=== PATIENT | male | born 1965 | race Caucasian/White ===

== ENCOUNTER 2019-12-25 08:46 | Inpatient (IN) | payer MEDICAID, OTHER ==
[~2019-12-25] VITALS: Ht 162.6 cm; Wt 67.1 kg
--- NOTE | 2019-12-25 09:02 | NUR ---
[email or web address], medical screening exam in progress
[2019-12-25] MEDS ORDERED: FOLI1TAB16 PO (09:26)
[2019-12-25] MEDS ORDERED: PANT40TA49 PO (09:26)
[2019-12-25] MEDS ORDERED: NIFE-34 PO (09:26)
[2019-12-25] MEDS ORDERED: CALC667T6 PO (09:26)
[2019-12-25] MEDS ORDERED: VIT1TABL46 PO (09:26)
[2019-12-25] MEDS ORDERED: METO50TA16 PO (09:26)
[2019-12-25] MEDS ORDERED: METO25TA6 PO (09:26)
[2019-12-25] MEDS ORDERED: ASPI81TA31 PO (09:26)
[2019-12-25] MEDS ORDERED: ATOR20TA PO (09:26)
[2019-12-25] MEDS ORDERED: DIPH25CA83 PO (09:26)
[2019-12-25] MEDS ORDERED: APIX5TAB PO (09:26)
[2019-12-25] MEDS ORDERED: CYAN-51 PO (09:26)
[2019-12-25 09:57] LABS: BASOPHILS # (AUTO) 0.1 K/uL (0.0-8.0); BASOPHILS % (AUTO) 1.1 % (0.0-2.0); EOSINOPHILS # (AUTO) 0.1 K/uL (0.0-0.7); EOSINOPHILS % (AUTO) 1.9 % (0.0-7.0); HEMATOCRIT 30.6 % (36.7-47.1); HEMOGLOBIN 10.3 g/dL (12.5-16.3); LYMPHOCYTES # (AUTO) 1.2 K/uL (20.0-40.0); LYMPHOCYTES % (AUTO) 20.9 % (20.5-51.5); MEAN CORPUSCULAR HEMOGLOBIN 30.5 uug (23.8-33.4); MEAN CORPUSCULAR HGB CONC 34 g/dL (32.5-36.3); MEAN CORPUSCULAR VOLUME 90.2 fL (73.0-96.2); MONOCYTES # (AUTO) 0.4 K/uL (2.0-10.0); MONOCYTES % (AUTO) 7.6 % (0.0-11.0); NEUTROPHILS % (AUTO) 68.5 % (38.5-71.5); PLATELET COUNT (AUTO) 281 K/uL (152-348); RED BLOOD CELL COUNT(AUTO) 3.39 MIL/uL (4.06-5.63); WHITE BLOOD COUNT (AUTO) 5.9 K/uL (3.6-10.2)
[2019-12-25 10:04] LABS: POTASSIUM 4.8 mmol/L (3.5-5.1)
[2019-12-25 10:13] LABS: MAGNESIUM 3.5 mg/dL (1.8-2.4)
[2019-12-25 10:14] LABS: CREATININE 16.6 mg/dL (0.6-1.3)
[2019-12-25 10:17] LABS: PHOSPHOROUS 17.6 mg/dL (2.5-4.9)
[2019-12-25 10:20] LABS: BILIRUBIN,DIRECT 0.1 mg/dL (0.0-0.2); BILIRUBIN,TOTAL 0.5 mg/dL (0.2-1.0); TOTAL PROTEIN, SERUM 7.2 g/dL (6.4-8.2)
[2019-12-25 10:24] LABS: EOSINOPHILS % (MANUAL) 1 % (0-8); LYMPHOCYTES % (MANUAL) 20 % (20-40); MONOCYTES % (MANUAL) 7 % (2-10); NEUTROPHILS % (MANUAL) 72 % (42-75)
--- NOTE | 2019-12-25 10:24 | NUR ---
called [facility] for panel placement
--- NOTE | 2019-12-25 10:53 | NUR ---
LANDSCAPE CONTRACTOR [email or web address]
[2019-12-25] MEDS ORDERED: ACETAMINOPHEN 325 MG TABLET PO PRN (11:15)
[2019-12-25] MEDS ORDERED: ONDANSETRON 4 MG/2 ML VIAL IV PRN (11:15)
[2019-12-25] MEDS ORDERED: Z GUARD REMEDY PASTE 57 GM TUBE TOP PRN (11:15)
[2019-12-25] MEDS ORDERED: Medication Not On Formulary EA (Diphenhydramine Hcl (Benadryl) 25 MG) PO PRN (11:15)
[2019-12-25] MEDS ORDERED: diphenhydrAMINE 25 MG CAP PO PRN (11:45)
--- NOTE | 2019-12-25 12:08 | NUR ---
skin check done. no skin issues noted. pt have central line for dialysis intact. bruit felt on fistula. belongings check done. will apply tele monitor to patient.
[2019-12-25] MEDS: CALCIUM ACETATE 667 MG CAPSULE PO SCH ×2 (12:54→17:37)
[2019-12-25] MEDS: SEVELAMER CARBONATE 800 MG TABLET PO SCH (17:34)
[2019-12-25] MEDS: APIXABAN 5 MG TABLET PO SCH (17:38)
--- NOTE | 2019-12-25 19:30 | NUR ---
RECEIVED PT IN NO ACUTE DISTRESS. IV INTACT. SAFETY AND COMFORT PROVIDED. WILL CONTINUE TO MONITOR.
[2019-12-25 20:00] VITALS: BP 195/84
[2019-12-25] MEDS: ATORVASTATIN 20 MG TABLET PO SCH (20:23)
[2019-12-25] MEDS: METOPROLOL TARTRATE 50 MG TABLET PO SCH (21:02)
--- NOTE | 2019-12-25 21:12 | NUR ---
HYDRALAZINE ORDERED FOR PT FOR BP 195/84. PT IN NO ACUTE DISTRESS. WILL CONTINUE TO MONITOR.
[2019-12-25] MEDS: hydrALAZINE HCL 20 MG/1 ML VIAL IV PRN (22:04)
[2019-12-26 00:10] VITALS: BP 158/61
[2019-12-26 04:00] VITALS: BP 177/66
[2019-12-26] MEDS: hydrALAZINE HCL 20 MG/1 ML VIAL IV PRN (06:03)
--- NOTE | 2019-12-26 06:21 | NUR ---
PT IN NO ACUTE DISTRESS. IV INTACT. PRESCRIBED MEDICATION GIVEN AND PT TOLERATED IT WELL. PT GIVEN HYDRALIZINE FOR 177/46 BLOOD PRESSURE. PT TOLERATED IT WELL. SAFETY AND COMFORT PROVIDED.ALL NEEDS ARE MET.WILL ENDORSE TO INCOMING NURSE FOR CONTINUITY OF CARE.
[2019-12-26 06:27] VITALS: BP 159/73
[2019-12-26] MEDS ORDERED: PANTOPRAZOLE SODIUM 40 MG TABLET.DR PO SCH ×2 (07:00→09:00)
[2019-12-26 07:53] LABS: THYROID STIMULATING HORMONE 1.822 mIU/mL (0.358-3.740)
[2019-12-26 08:16] LABS: EOSINOPHILS # (AUTO) 0.2 K/uL (0.0-0.7); EOSINOPHILS % (AUTO) 4.1 % (0.0-7.0); HEMOGLOBIN 11.4 g/dL (12.5-16.3); LYMPHOCYTES # (AUTO) 1.2 K/uL (20.0-40.0); LYMPHOCYTES % (AUTO) 23.6 % (20.5-51.5); MEAN CORPUSCULAR HEMOGLOBIN 30.4 uug (23.8-33.4); MEAN CORPUSCULAR HGB CONC 33 g/dL (32.5-36.3); MEAN CORPUSCULAR VOLUME 90.9 fL (73.0-96.2); MONOCYTES # (AUTO) 0.4 K/uL (2.0-10.0); MONOCYTES % (AUTO) 8.2 % (0.0-11.0); NEUTROPHILS # (AUTO) 3.3 K/uL (1.8-8.9); NEUTROPHILS % (AUTO) 63.1 % (38.5-71.5); PLATELET COUNT (AUTO) 270 K/uL (152-348); RED BLOOD CELL COUNT(AUTO) 3.75 MIL/uL (4.06-5.63); WHITE BLOOD COUNT (AUTO) 5.2 K/uL (3.6-10.2)
[2019-12-26 08:19] LABS: HEMATOCRIT 34.1 % (36.7-47.1)
[2019-12-26] MEDS: CYANOCOBALAMIN 1,000 MCG TABLET PO SCH (08:39)
[2019-12-26] MEDS: FOLIC ACID 1 MG TABLET PO SCH (08:39)
[2019-12-26] MEDS: ASPIRIN 81 MG TAB.CHEW PO SCH (08:39)
[2019-12-26] MEDS: FOLIC ACID/VITAMIN B COMP W-C TABLET PO SCH (08:52)
[2019-12-26 08:59] LABS: POTASSIUM 5.1 mmol/L (3.5-5.1)
[2019-12-26] MEDS ORDERED: NIFEdipine XL 60 MG TABSR PO SCH (09:00)
[2019-12-26] MEDS ORDERED: Medication Not On Formulary EA (Vit B Cmplx 3/Fa/Vit C/Biotin (Rena-Vite Rx Tablet) 1 EA PO SCH (09:00)
[2019-12-26] MEDS: SEVELAMER CARBONATE 800 MG TABLET PO SCH ×3 (09:25→17:31)
[2019-12-26] MEDS: APIXABAN 5 MG TABLET PO SCH ×2 (09:26→17:31)
[2019-12-26] MEDS ORDERED: DEXTROSE 50% 50 ML DISP.SYRIN IV PRN (09:30)
[2019-12-26] MEDS: CALCIUM ACETATE 667 MG CAPSULE PO SCH ×3 (09:38→17:31)
[2019-12-26] MEDS: METOPROLOL TARTRATE 50 MG TABLET PO SCH ×2 (09:38→21:08)
[2019-12-26] MEDS: NIFEdipine XL 90 MG TABSR PO SCH (10:22)
[2019-12-26 10:31] LABS: CREATININE 12.1 mg/dL (0.6-1.3)
[2019-12-26 10:32] LABS: PHOSPHOROUS 10.1 mg/dL (2.5-4.9)
[2019-12-26 11:30] VITALS: BP 145/55
[2019-12-26] MEDS: INSULIN REGULAR, HUMAN 300 UNIT/3 ML VIAL SQ PRN ×2 (12:06→21:15)
[2019-12-26] MEDS: BLOOD SUGAR DIAGNOSTIC 1 EACH STRIP VI SCH ×3 (12:11→21:12)
[2019-12-26 15:30] VITALS: BP 110/51
--- NOTE | 2019-12-26 18:30 | NUR ---
Patient remains alert, oriented x 4, not in any form of distress,on room air. No significant change noted during the shift. Due medications administered and tolerated well. No complain of any pain or discomfort. Assisted with his needs promptly. Call light and frequently used items placed within patient's reach.
--- NOTE | 2019-12-26 19:00 | NUR ---
PATIENT ALERT ORIENTED, NO SOB NO CHEST PAIN. PATIENT ON TELE MONITOR SINUS RHYTHM, SINUS RODO 45. PATIENT R CHEST DIALYSIS CATH DRESSING INTACT, NO BLEEDING NOTED. PATIENT WANTS TO DRINK ALL KINDS OF FLUIDS, NON COMPLIANT WITH FLUIDS MODIFICATIONS, CONT TO ENCOURAGE TO FOLLOW MD ORDERED. PATIENT HAS NO S/S OF HYPO/HYPERGLYCEMIA NOTED AT THIS TIME.
[2019-12-26 20:00] VITALS: BP 112/49
[2019-12-26] MEDS: ATORVASTATIN 20 MG TABLET PO SCH (21:09)
[2019-12-27] VITALS: BP 114/50
--- NOTE | 2019-12-27 01:30 | NUR ---
PATIENT WAS DIAPHORETIC, BUT ALERT VERBALLY RESPONSIVE. BP 114/50, HR 53,100% NO COMPLAIN OF DISCOMFORT, CONT TO MONITOR.
--- NOTE | 2019-12-27 03:15 | NUR ---
PATIENT HR WAS 44, PATIENT AWAKE ALERT, STATED HE FEELS JOSE MARIA, NO COMPLAIN OF DISCOMFORT. SKIN WARM AND DRY, CONT TO MONITOR.
[2019-12-27 04:40] VITALS: BP 149/62
--- NOTE | 2019-12-27 04:44 | NUR ---
PATIENT HAS LOW TEMP 92 RECTAL, DARWIN HUGGER BLANKET APPLIED. PATIENT ALERT ORIENTED, NO S/S OF DISTRESS, CONT TO MONITOR.
[2019-12-27] MEDS: BLOOD SUGAR DIAGNOSTIC 1 EACH STRIP VI SCH ×4 (05:13→21:30)
--- NOTE | 2019-12-27 05:48 | NUR ---
PATIENT ALERT ORIENTED, NO SOB NO CHEST PAIN, TELE MONITOR SINUS RHYTHM, SINUS RODO AT 50. PATIENT ASYMPTOMATIC, CONT APPLICATIONS OF DARWIN HUGGER, NO COMPLAIN OF PAIN, CONT TO MONITOR.
--- NOTE | 2019-12-27 06:07 | NUR ---
PATIENT CURRENT TEMP 94.7 ORALLY, PATIENT ALERT ORIENTED, DARWIN LIN CONTINUE. DIALYSIS STAFF WILL DO DIALYSIS NOW, WILL CONTINUE TO MONITOR.
[2019-12-27 07:28] LABS: MAGNESIUM 3.1 mg/dL (1.8-2.4); POTASSIUM 4.8 mmol/L (3.5-5.1)
[2019-12-27 07:29] LABS: BASOPHILS % (AUTO) 0.5 % (0.0-2.0); EOSINOPHILS # (AUTO) 0.1 K/uL (0.0-0.7); HEMATOCRIT 34.1 % (36.7-47.1); HEMOGLOBIN 11.3 g/dL (12.5-16.3); LYMPHOCYTES # (AUTO) 0.9 K/uL (20.0-40.0); LYMPHOCYTES % (AUTO) 18.1 % (20.5-51.5); MEAN CORPUSCULAR HEMOGLOBIN 30.3 uug (23.8-33.4); MEAN CORPUSCULAR HGB CONC 33 g/dL (32.5-36.3); MEAN CORPUSCULAR VOLUME 90.8 fL (73.0-96.2); MONOCYTES # (AUTO) 0.4 K/uL (2.0-10.0); MONOCYTES % (AUTO) 8.3 % (0.0-11.0); NEUTROPHILS # (AUTO) 3.4 K/uL (1.8-8.9); NEUTROPHILS % (AUTO) 71.1 % (38.5-71.5); PLATELET COUNT (AUTO) 256 K/uL (152-348); RED BLOOD CELL COUNT(AUTO) 3.75 MIL/uL (4.06-5.63); WHITE BLOOD COUNT (AUTO) 4.7 K/uL (3.6-10.2)
--- NOTE | 2019-12-27 07:30 | NUR ---
received patient in bed. AOX4. dialysis nurse at bed. patient is getting dialysis. safety and fall prevention in place. call light in reach. will continue to monitor.
[2019-12-27 07:31] LABS: CREATININE 13.2 mg/dL (0.6-1.3)
--- NOTE | 2019-12-27 07:32 | NUR ---
PATIENT ALERT ORIENTED, PATIENT STILL ON DIALYSIS, ENDORSED TO NEXT NURSE PATIENT CURRENT TEMP. AND TO MONITOR.
[2019-12-27] MEDS: NIFEdipine XL 90 MG TABSR PO SCH (09:00)
[2019-12-27] MEDS ORDERED: PANTOPRAZOLE SODIUM 40 MG TABLET.DR PO SCH (09:00)
[2019-12-27] MEDS: ASPIRIN 81 MG TAB.CHEW PO SCH (09:00)
[2019-12-27 10:06] LABS: HEPATITIS B SURFACE AB Reactive (.); HEPATITIS B SURFACE AG Negative (Negative)
[2019-12-27] MEDS: FOLIC ACID 1 MG TABLET PO SCH (10:34)
[2019-12-27] MEDS: CYANOCOBALAMIN 1,000 MCG TABLET PO SCH (10:36)
[2019-12-27] MEDS: CALCIUM ACETATE 667 MG CAPSULE PO SCH ×2 (10:36→17:25)
[2019-12-27] MEDS: SEVELAMER CARBONATE 800 MG TABLET PO SCH ×2 (10:37→17:25)
[2019-12-27] MEDS: FOLIC ACID/VITAMIN B COMP W-C TABLET PO SCH (10:37)
[2019-12-27] MEDS: APIXABAN 5 MG TABLET PO SCH ×2 (10:38→17:36)
[2019-12-27] MEDS: METOPROLOL TARTRATE 50 MG TABLET PO SCH ×2 (10:43→22:02)
[2019-12-27 12:00] VITALS: BP 159/67
[2019-12-27] MEDS: INSULIN REGULAR, HUMAN 300 UNIT/3 ML VIAL SQ PRN ×2 (13:09→22:07)
--- NOTE | 2019-12-27 13:30 | NUR ---
report given to Aldo. patient transfered to ms/tely floor in stable condition.
--- NOTE | 2019-12-27 13:40 | NUR ---
transferred per w/c in room 312, awake alert and oriented, very pleasant, with right chest permacth, left arm av fistula with good bruit, on room air sat at 96%, denies of shortness of breath, explained plan of care- verbalized understanding, safety measures maintained, call light within reach
--- NOTE | 2019-12-27 14:00 | NUR ---
seen by PT- see notes
[2019-12-27 16:06] VITALS: BP 130/60
--- NOTE | 2019-12-27 18:27 | NUR ---
ate good dinner, no distress noted, all needs attended and met, safety measures maintained, tele sr 80's, call light within reach
--- NOTE | 2019-12-27 19:00 | NUR ---
RECD PT IN BED,RESTING COMFORTABLY, ALERT ,ORIENTED, VERBALLY RESPONSIVE,NO ACUTE DISTRESS NOTED. IV ACCESS ON RT HAND PATENT AND INTACT.
[2019-12-27 20:00] VITALS: BP 145/62
--- NOTE | 2019-12-27 21:30 | NUR ---
ACC CHECK DONE , 282, INSULIN COVERAGE GIVEN, NO DIABETIC CRISE NOTED. DUE MEDS GIVEN, CONSUMED HS SNACKS W/O ANY PROBLEMS. NEEDS ATTENDED TO.INSTRUCTED REGARDING IMPORTANCE OF COMPLYING TO HIS TREATMENT REGIMEN, ABLE TO DEMONSTRATE UNDERSTANDING.
[2019-12-27] MEDS: ATORVASTATIN 20 MG TABLET PO SCH (22:01)
--- NOTE | 2019-12-27 22:30 | NUR ---
ON TELE, SR 72.RESTING QUIETLY,NO COMPLAINTS PRESENTED.
[2019-12-28] VITALS (7 sets, daily range): BP systolic 129–161; BP diastolic 56–69
--- NOTE | 2019-12-28 00:30 | NUR ---
SLEPT ON AND OFF, VITALS TAKEN AND RECORDED.MONITORED FOR ANY SSX OF DISTRESS.
--- NOTE | 2019-12-28 02:00 | NUR ---
SLEPT AT LONG INTERVALS.NO COMPLAINTS MADE.STILL ON TELE,SINUS,72
[2019-12-28 05:56] LABS: BASOPHILS % (AUTO) 0.8 % (0.0-2.0); EOSINOPHILS # (AUTO) 0.2 K/uL (0.0-0.7); EOSINOPHILS % (AUTO) 2.9 % (0.0-7.0); HEMATOCRIT 35.4 % (36.7-47.1); HEMOGLOBIN 11.8 g/dL (12.5-16.3); LYMPHOCYTES # (AUTO) 1.4 K/uL (20.0-40.0); LYMPHOCYTES % (AUTO) 25.5 % (20.5-51.5); MEAN CORPUSCULAR HGB CONC 34 g/dL (32.5-36.3); MEAN CORPUSCULAR VOLUME 89.8 fL (73.0-96.2); MONOCYTES # (AUTO) 0.4 K/uL (2.0-10.0); MONOCYTES % (AUTO) 7.5 % (0.0-11.0); NEUTROPHILS # (AUTO) 3.6 K/uL (1.8-8.9); NEUTROPHILS % (AUTO) 63.3 % (38.5-71.5); PLATELET COUNT (AUTO) 235 K/uL (152-348); RED BLOOD CELL COUNT(AUTO) 3.94 MIL/uL (4.06-5.63); WHITE BLOOD COUNT (AUTO) 5.7 K/uL (3.6-10.2)
[2019-12-28 06:06] LABS: MAGNESIUM 2.8 mg/dL (1.8-2.4); PHOSPHOROUS 7.1 mg/dL (2.5-4.9); POTASSIUM 5.1 mmol/L (3.5-5.1)
[2019-12-28 06:10] LABS: CREATININE 10.3 mg/dL (0.6-1.3)
[2019-12-28] MEDS: PANTOPRAZOLE SODIUM 40 MG TABLET.DR PO SCH (06:48)
[2019-12-28] MEDS: BLOOD SUGAR DIAGNOSTIC 1 EACH STRIP VI SCH ×4 (06:49→21:05)
--- NOTE | 2019-12-28 06:50 | NUR ---
BS DONE 146, NO DISTRESS NOTED, ENDORSED TO AM NURSE IN APPARENTLY FAIR CONDITION.
--- NOTE | 2019-12-28 07:47 | NUR ---
Per Suri CARDOSO, informed Dr. Foster of Cr 10.3, no new orders
[2019-12-28] MEDS: CALCIUM ACETATE 667 MG CAPSULE PO SCH ×3 (09:08→17:02)
[2019-12-28] MEDS: SEVELAMER CARBONATE 800 MG TABLET PO SCH ×3 (09:09→17:02)
[2019-12-28] MEDS: CYANOCOBALAMIN 1,000 MCG TABLET PO SCH (09:09)
[2019-12-28] MEDS: ASPIRIN 81 MG TAB.CHEW PO SCH (09:09)
[2019-12-28] MEDS: FOLIC ACID/VITAMIN B COMP W-C TABLET PO SCH (09:09)
[2019-12-28] MEDS: FOLIC ACID 1 MG TABLET PO SCH (09:09)
[2019-12-28] MEDS: METOPROLOL TARTRATE 50 MG TABLET PO SCH ×2 (09:15→21:04)
[2019-12-28] MEDS: APIXABAN 5 MG TABLET PO SCH ×2 (09:20→17:06)
[2019-12-28] MEDS: INSULIN REGULAR, HUMAN 300 UNIT/3 ML VIAL SQ PRN ×3 (09:22→21:08)
[2019-12-28] MEDS: NIFEdipine XL 90 MG TABSR PO SCH (09:58)
--- NOTE | 2019-12-28 10:00 | NUR ---
left FA AV shunt thrill and bruit noted
--- NOTE | 2019-12-28 18:12 | NUR ---
pt's left right hand IV got infiltrated, removed. Pt refused to have another IV inserted saying that he will be leaving tomorrow morning. Educated on risks and benefits but still refused. Informed Jorge CARDOSO.
--- NOTE | 2019-12-28 19:00 | NUR ---
recd pt resting in bed,in apparently fair condition, no acute distress noted,alert,oriented.perma cath on rt chest wall in place,dialysis in am scheduled.
--- NOTE | 2019-12-28 21:00 | NUR ---
due meds given, afebrile, hs snacks tolerated well. bs 153, insulin coverage administered per sliding scale.kept warm and dry,no complaints presented.
[2019-12-28] MEDS: ATORVASTATIN 20 MG TABLET PO SCH (21:03)
--- NOTE | 2019-12-29 | NUR ---
SLEPT FAIRLY WELL, NO COMPLAINTS MADE.FLUID RESTRICTIONS OBSERVED.
[2019-12-29 04:22] VITALS: BP 133/54
--- NOTE | 2019-12-29 05:19 | NUR ---
FOR DIALYSIS THIS MORNING,HAD A QUIET NOC.
[2019-12-29] MEDS: PANTOPRAZOLE SODIUM 40 MG TABLET.DR PO SCH (06:46)
[2019-12-29] MEDS: BLOOD SUGAR DIAGNOSTIC 1 EACH STRIP VI SCH (06:47)
--- NOTE | 2019-12-29 06:49 | NUR ---
DIALYSIS ON GOING.
--- NOTE | 2019-12-29 06:50 | NUR ---
PROTONIX NOT GIVEN , PT SLEEPING AND UNDERGOING DIALYSIS.ENDORSED TO AM NURSE.
[2019-12-29 07:16] LABS: BASOPHILS % (AUTO) 0.9 % (0.0-2.0); EOSINOPHILS # (AUTO) 0.2 K/uL (0.0-0.7); EOSINOPHILS % (AUTO) 5.7 % (0.0-7.0); HEMATOCRIT 33.7 % (36.7-47.1); HEMOGLOBIN 11.1 g/dL (12.5-16.3); LYMPHOCYTES # (AUTO) 1.8 K/uL (20.0-40.0); LYMPHOCYTES % (AUTO) 42.4 % (20.5-51.5); MEAN CORPUSCULAR HGB CONC 33 g/dL (32.5-36.3); MEAN CORPUSCULAR VOLUME 90.7 fL (73.0-96.2); MONOCYTES # (AUTO) 0.3 K/uL (2.0-10.0); MONOCYTES % (AUTO) 6.9 % (0.0-11.0); NEUTROPHILS # (AUTO) 1.8 K/uL (1.8-8.9); NEUTROPHILS % (AUTO) 44.1 % (38.5-71.5); PLATELET COUNT (AUTO) 217 K/uL (152-348); RED BLOOD CELL COUNT(AUTO) 3.71 MIL/uL (4.06-5.63); WHITE BLOOD COUNT (AUTO) 4.2 K/uL (3.6-10.2)
[2019-12-29 07:36] LABS: MAGNESIUM 2.6 mg/dL (1.8-2.4); PHOSPHOROUS 4.7 mg/dL (2.5-4.9); POTASSIUM 4.3 mmol/L (3.5-5.1)
[2019-12-29 07:37] LABS: CREATININE 8.2 mg/dL (0.6-1.3)
[2019-12-29 08:46] VITALS: BP 140/59
[2019-12-29] MEDS: CYANOCOBALAMIN 1,000 MCG TABLET PO SCH (08:46)
[2019-12-29] MEDS: ASPIRIN 81 MG TAB.CHEW PO SCH (08:46)
[2019-12-29] MEDS: FOLIC ACID 1 MG TABLET PO SCH (08:46)
[2019-12-29] MEDS: NIFEdipine XL 90 MG TABSR PO SCH (08:46)
[2019-12-29] MEDS: METOPROLOL TARTRATE 50 MG TABLET PO SCH (08:46)
[2019-12-29] MEDS: FOLIC ACID/VITAMIN B COMP W-C TABLET PO SCH (08:46)
[2019-12-29] MEDS: CALCIUM ACETATE 667 MG CAPSULE PO SCH (08:46)
[2019-12-29] MEDS: APIXABAN 5 MG TABLET PO SCH (08:47)
[2019-12-29] MEDS: SEVELAMER CARBONATE 800 MG TABLET PO SCH (08:49)
--- NOTE | 2019-12-29 09:10 | NUR ---
Pt wants to leave AMA. Discussed risk and benefits of leaving AMA. Notified Serena Alberto MANAGER OF MEDICAL hospitalist pt left AMA. Pt is in no acute distress upon leaving.
== END 2019-12-29 09:10 | disposition left against medical advice (07) | DRG 425 ==
LOC: EDBD 08:46 → ER 08:46 → TELE 10:52 → TELE3 12-27 13:25 → MEDSURG3 12-28 13:00
PROVIDERS: ADMIT Registered Nurse; ATTEND Registered Nurse
PROC: 5A1D70Z Performance of Urinary Filtration, Intermittent, Less than 6 Hours Per Day (ICD-10-PCS; principal; 2019-12-25)
DX: E87.70 Fluid overload, unspecified (principal); I12.0 Hypertensive chronic kidney disease with stage 5 chronic kidney disease or end stage renal disease; E11.22 Type 2 diabetes mellitus with diabetic chronic kidney disease; I48.91 Unspecified atrial fibrillation; E83.9 Disorder of mineral metabolism, unspecified; N18.6 End stage renal disease; Z91.15 Patient's noncompliance with renal dialysis; Z99.2 Dependence on renal dialysis; Z79.01 Long term (current) use of anticoagulants; K21.9 Gastro-esophageal reflux disease without esophagitis; D64.9 Anemia, unspecified; R07.89 Other chest pain; Z59.0 Homelessness; Z91.81 History of falling; R05 Cough
CPT/HCPCS: 36415; 70030-TC; 71045; 83615; 83735; 84100; 84443; 85025; 85651; 85730; 86140; 86706; 87340; 90937; 93005; A4663; G0378; J0360; J1815; Q0163; U0003-CS